=== PATIENT | male | born 1950 | race Caucasian/White ===

== ENCOUNTER 2017-12-26 17:46 | Inpatient (IN) | payer OTHER, MEDICAID ==
[~2017-12-26] VITALS: Ht 162.6 cm; Wt 55.8 kg
[2017-12-26 17:48] VITALS: BP 101/60
--- NOTE | 2017-12-26 18:01 | NUR ---
PT AMBULATED TO BED 4 WITH WALKER
--- NOTE | 2017-12-26 18:10 | NUR ---
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 PER CG PT REPORTS EPIGASTRIC PAIN FOR PAST 3-4 DAYS. PT HX SEIZURES, PROSTATE ENLARGEMENT, ECZEMA, CRANIOTOMY, MILD MENTAL RETARDATION, ACUTE SUB HEMATOMA, VAGUS NERVE STIMULATOR IMPLANT, HYPONATREMIA. PT NEURO WITHIN BASELINE FOR PT DX OF MENTAL RETARDATION. IS A & O X 4. GCS 15. ANSWERED QUESTIONS APPROPRIATELY GIVEN ADEQUATE TIME TO THINK. PT COOPERATIVE AND SMILING. PT REPORTS PAIN 4/10 IN EPIGASTRIC AREA THAT FEELS LIKE BURNING. WORSENS AFTER MEALS, ESPECIALLY DINNER AND WHEN HE LIES DOWN FLAT. PER CG, PT HAS NOT BEEN EATING LIKE HE USUALLY DOES X 3 DAYS. NO S/S OF ACUTE RESPIRATORY DISTRESS. CMS INTACT. SKIN INTACT. ER MD SWANNAW AWARE OF PT CONDITION. SAFETY PRECAUTIONS IN PLACE. PT NEEDS MET AT THIS TIME. WILL CONTINUE TO MONITOR.
--- NOTE | 2017-12-26 19:19 | NUR ---
Pt report given to SHYANNE Bryant RN AND MARY JANE BAILEY. Transfer of care at this time.
[2017-12-26] MEDS ORDERED: IBUPROFEN 800 MG TAB PO ONE (19:45)
--- NOTE | 2017-12-26 20:20 | NUR ---
PT TAKEN TO CT
--- NOTE | 2017-12-26 21:45 | NUR ---
PT RETUNED FROM CT PLACED ON MONITOR LUNG SOUNDS DIMINISHED ON THE RIGHT SIDE SOME CRACKLES HEARD. NO C/O OF PAIN AT THIS TIME PT SAID "MY LUNGS ARE FINE"
--- NOTE | 2017-12-26 22:10 | NUR ---
pt resting in bed, vss. instrumentation and controls technician continues at bedside.
[2017-12-26 22:59] LABS: APPEARANCE,URINE CLEAR (CLEAR); BILIRUBIN,URINE 1+ (NEGATIVE); BLOOD, URINE TRACE-L (NEGATIVE); COLOR,URINE YELLOW (YELLOW); LEUKOCYTE ESTERASE ,URINE NEGATIVE (NEGATIVE); NITRITE, URINE NEGATIVE (NEGATIVE); UGLUCOSE NEGATIVE (NEGATIVE)
[2017-12-26 23:08] LABS: RBC,URINE 0-5 (RARE) /HPF (0-5); WBC,URINE 0-5 (RARE) /HPF (0-5)
--- NOTE | 2017-12-26 23:18 | NUR ---
CAREGIVER AT BEDSIDE
--- NOTE | 2017-12-26 23:34 | NUR ---
CONSENT OBTAINED BY CHARGE NURSE FROM CAREGIVER FOR CHEST TUBE WITH CONSCIOUSS SEDATION.
[2017-12-26] MEDS ORDERED: NACL 0.9% 1,000 ML IV ONE (23:50)
[2017-12-26] MEDS ORDERED: LIDOCAINE 1% 500 MG/50 ML VIAL INJ SCH (23:50)
[2017-12-26] MEDS ORDERED: KETAMINE 500 MG/5 ML VIAL IVP ONE (23:50)
[2017-12-26] MEDS ORDERED: LIDOCAINE/EPI 1% 1:100000 20 ML VIAL INJ ONE (23:53)
[2017-12-27] VITALS (7 sets, daily range): BP systolic 101–175; BP diastolic 48–109
--- NOTE | 2017-12-27 00:23 | NUR ---
TIME OUT CALLED BY DR ANGULO FOR CHEST TUBE INSERTION WITH CONSCIOUSS SEDATION AND LOCAL ANESTHESIA. ER MD, RT, CHARGE NURSE AND PRIMARY CARE NURSE AT BEDSIDE.
[2017-12-27] MEDS ORDERED: LORazepam 2 MG/ML VIAL ONE (00:30)
--- NOTE | 2017-12-27 00:31 | NUR ---
PER DR ANGULO VERBAL ORDER ATIVAN 2MG ADMINISTERED IV PUSH FOR SEIZURE ACTIVITY.
--- NOTE | 2017-12-27 00:32 | NUR ---
PROCEDURE FOR POSSIBLE CHEST TUBE INSERTION WITH CONSCIOUSS SEDATION HAS BEGUN.
--- NOTE | 2017-12-27 00:33 | NUR ---
PER DR ANGULO CHEST TUBE IN, CHEST TUBE HOOKED UP TO VACCUM SYSTEM.
--- NOTE | 2017-12-27 00:35 | NUR ---
Note joi in EDM - 12/27/17 at 0253 by BYRON Patient will be admitted to care of DR HOGAN. Admited to ICU. Will go to room ICU. Belongings list completed. Report to MARY JANE MELGAR.
--- NOTE | 2017-12-27 00:37 | NUR ---
PROCEDURE DONE, WILL CONT TO MONITOR PT. VSS, NO S/S OF DISTRESS NOTED AT THIS MOMENT.
[2017-12-27] MEDS ORDERED: ONDANSETRON 4 MG/2 ML VIAL ONE (00:40)
--- NOTE | 2017-12-27 01:01 | NUR ---
APPROXIMATELY 0030 CALLED TO A CONCIOUS SEDATION TO PLACE A CHEST TUBE IN PT ON RT LUNG. PATIENT WAS HOOKED UP TO ENTITLED C02 MONITOR WITN NASAL CANNULA AT 2 TO 4 L. PT DID WELL DURING PROCEDURE NO SOB NOTED.
[2017-12-27] MEDS ORDERED: ONDANSETRON 4 MG/2 ML VIAL IVP ONE (01:10)
[2017-12-27] MEDS ORDERED: LORazepam 2 MG/ML VIAL IVP ONE ×2 (01:10→06:00)
[2017-12-27] MEDS ORDERED: HYDROcodone/APAP 7.5/325 MG 1 TAB PO PRN (01:15)
[2017-12-27] MEDS ORDERED: ACETAMINOPHEN 325 MG TAB PO PRN (01:15)
[2017-12-27] MEDS ORDERED: ONDANSETRON 4 MG/2 ML VIAL IM/IVP PRN (01:15)
[2017-12-27 01:35] LABS: BASOPHILS # (AUTO) 0.3 K/uL (0.00-0.22); BASOPHILS % (AUTO) 4.3 % (0.0-2.0); EOSINOPHILS # (AUTO) 0.4 K/uL (0-0.4); EOSINOPHILS % (AUTO) 6.3 % (0.0-4.0); HEMATOCRIT 37.8 % (36-52); HEMOGLOBIN 12.6 g/dL (12.0-18.0); LYMPHOCYTES # (AUTO) 1.1 K/uL (2.0-11.5); LYMPHOCYTES % (AUTO) 18.5 % (20.5-51.1); MEAN CORPUSCULAR HEMOGLOBIN 31 pg (27-31); MEAN CORPUSCULAR HGB CONC 33 g/dL (33-37); MEAN CORPUSCULAR VOLUME 94 fL (80-94); MONOCYTES # (AUTO) 0.4 K/uL (0.8-1.0); MONOCYTES % (AUTO) 7.1 % (1.7-9.3); NEUTROPHILS % (AUTO) 63.8 % (42.2-75.2); PLATELET COUNT (AUTO) 209 K/uL (140-450); RED BLOOD CELL COUNT(AUTO) 4.01 MIL/uL (4.20-6.10); RED CELL DISTRIBUTION WIDTH 12.6 % (11.6-13.7); WHITE BLOOD COUNT (AUTO) 6.2 K/uL (4.8-10.8)
--- NOTE | 2017-12-27 02:01 | NUR ---
100CC OF BLOOD IN VACCUM SYSTEM NOTED, ER MD MADE AWARE. NO S/S OF DISTRESS NOTED. VSS.
[2017-12-27] MEDS ORDERED: LIDOCAINE/EPI 1% 1:100000 20 ML VIAL INJ ONE (02:05)
[2017-12-27 02:16] LABS: ALBUMIN 3.1 g/dL (3.4-5.0); ANION GAP 13.1 (8-16); CARBON DIOXIDE 23.6 mmol/L (21-32); POTASSIUM 3.7 mmol/L (3.5-5.1); TOTAL BILIRUBIN 0.5 mg/dL (0.0-1.0)
[2017-12-27] MEDS ORDERED: LACO100T PO (02:20)
--- NOTE | 2017-12-27 02:30 | NUR ---
PATIENT ARRIVED VIA GURNEY FROM ER. RECEIVED BEDSIDE REPORT FROM LYNN RN AND CECE RN. PATIENT IS AWAKE, MUMBLING, AND DROWSY. UNABLE TO ORIENT PATIENT TO UNIT CARE ENVIRONMENT AT THIS TIME R/T PATIENT BEING DROWSY. DX PNEUMOTHORAX. PATIENT HAS CHEST TUBE ON LATERAL RIGHT SIDE DRAINING TO GRAVITY CONNECTED TO LOW INTERMITTENT SUCTIONING. THERE IS A #20 IN THE LEFT HAND THAT IS DRY, INTACT, AND PATENT. MRSA SWAB COLLECTED. ADMITTING VITAL SIGNS ARE TEMPERATURE 97.9, HR 82, BP 122/74, 100% ON 2LPM VIA NASAL CANNULA. INITIAL ASSESSMENT COMPLETED. HOB AT 30 DEGREES. WILL CONTINUE TO MONITOR PATIENT.
--- NOTE | 2017-12-27 02:35 | NUR ---
Patient will be admitted to care of DR HOGAN. Admited to ICU. Will go to room ICU. Belongings list completed. Report to MARY JANE MELGAR.
[2017-12-27 02:42] LABS: BARBITURATE, URINE NEG. ng/ml (NEG <=200); BENZODIAZEPINE, URINE NEG. ng/mL (NEG <=200); CANNABINOID, URINE NEG. ng/mL (NEG <=50); COCAINE, URINE NEG. ng/mL (NEG <=300); OPIATE, URINE NEG. ng/mL (NEG <=2000); PHENCYCLIDINE SCREEN,URINE NEG. ng/mL (NEG <=25)
[2017-12-27] MEDS: NACL 0.9% 1,000 ML IV SCH ×2 (02:49→12:48)
[2017-12-27 02:51] LABS: CHOL/HDL RATIO 2.1 (1-4.5); MAGNESIUM 1.7 mg/dL (1.8-2.4); PHOSPHORUS 3.2 mg/dL (2.5-4.9); THYROID STIMULATING HORMONE 1.94 uIU/mL (0.34-3.74)
[2017-12-27] MEDS ORDERED: LORazepam 2 MG/ML VIAL IVP SCH (03:00)
[2017-12-27 03:11] LABS: PROTHROMBIN TIME 12.4 secs (10.8-13.4)
[2017-12-27] MEDS ORDERED: LORazepam 2 MG/ML VIAL IM/IVP PRN ×2 (03:30→12:40)
[2017-12-27] MEDS ORDERED: MAG SULF 2000 MG/WATER PREMIX 50 ML IV SCH (04:00)
--- NOTE | 2017-12-27 04:05 | NUR ---
PATIENT SLEEPING IN BED. VITAL SIGNS WNL. HOB AT 30 DEGREES WITH BED IN LOWEST POSITION. CONTINUE TO MONITOR PATIENT.
--- NOTE | 2017-12-27 07:18 | NUR ---
SBAR GIVEN AT BEDSIDE TO LORE HINTON AND ONI HINTON FOR CONTINUITY OF CARE.
[2017-12-27 07:36] LABS: BASOPHILS # (AUTO) 0.3 K/uL (0.00-0.22); BASOPHILS % (AUTO) 3.3 % (0.0-2.0); EOSINOPHILS # (AUTO) 0.3 K/uL (0-0.4); EOSINOPHILS % (AUTO) 4.2 % (0.0-4.0); HEMOGLOBIN 12.9 g/dL (12.0-18.0); LYMPHOCYTES # (AUTO) 0.7 K/uL (2.0-11.5); LYMPHOCYTES % (AUTO) 9.4 % (20.5-51.1); MEAN CORPUSCULAR HEMOGLOBIN 32 pg (27-31); MEAN CORPUSCULAR HGB CONC 34 g/dL (33-37); MEAN CORPUSCULAR VOLUME 94 fL (80-94); MONOCYTES # (AUTO) 0.9 K/uL (0.8-1.0); MONOCYTES % (AUTO) 10.7 % (1.7-9.3); NEUTROPHILS # (AUTO) 5.8 K/uL (1.8-7.7); NEUTROPHILS % (AUTO) 72.4 % (42.2-75.2); PLATELET COUNT (AUTO) 206 K/uL (140-450); RED BLOOD CELL COUNT(AUTO) 4.03 MIL/uL (4.20-6.10); RED CELL DISTRIBUTION WIDTH 12.7 % (11.6-13.7)
--- NOTE | 2017-12-27 07:41 | NUR ---
RECEIVED REPORT FROM MARY JANE MELGAR. PT SLEEPING IN BED. 2L O2 NASAL CANULA. PT HAS LEFT HAND PERIPHERAL IV, 20 MADAI, 90ML NS RUNNING. IV SITE IS DRY AND ASYMPTOMATIC. PT HAS CHEST TUBE ON RIGHT SIDE, 2 CHEST TUBE CLAMPS AT BEDSIDE. PT HAS DIMINISHED BREATH SOUNDS ON RIGHT SIDE AND CLEAR BREATH SOUNDS ON LEFT. 21S2 HEARD AND NORMAL SINUS ON MONITOR. ACTIVE BOWEL SOUNDS IN ALL 4 QUADRANTS. PT HAS A PACE MAKER ON LEFT SIDE. PT IS AFEBRILE. PT CALL LIGHT WITHIN REACH, BED IS LOWEST POSITION WITH BED RAILS ELEVATED AND BED LOCK AND BED ALARM ON. WILL CLOSELY MONITOR.
[2017-12-27 08:35] LABS: ANION GAP 13.3 (8-16); CARBON DIOXIDE 23.7 mmol/L (21-32); CREATININE 0.8 mg/dL (0.7-1.3)
[2017-12-27] MEDS ORDERED: BISACODYL 10 MG SUPP RC PRN (09:00)
--- NOTE | 2017-12-27 09:24 | NUR ---
PATIENT HAS BEEN SCREENED AND CATEGORIZED MODERATE NUTRITION RISK. PATIENT WILL BE SEEN WITHIN 3-5 DAYS OF ADMISSION. 12/29/17 - 12/31/[address]
[2017-12-27] MEDS: PANTOPRAZOLE 40 MG INJ VIAL IVP SCH (09:46)
--- NOTE | 2017-12-27 10:00 | NUR ---
PT SLEEPING IN BED. RESIDENTS HAVE COME TO SEE PT. HE IS ON TELE STATUS. BOTH HIS NURSE AND THE DIRECTOR FROM HIS CARE HOME STOPPED BY TO SEE PT.
[2017-12-27] MEDS: KETOROLAC 30 MG/ML VIAL IVP PRN ×2 (10:13→18:08)
--- NOTE | 2017-12-27 12:00 | NUR ---
PT RESTING IN BED AND NO LONGER SHOWS ANY SIGNS OF FACIAL GRIMACES IN RESPONSE TO PAIN. PTS CALL LIGHT IN PLACE, BED LOCK AND ALARM ON. BED IN LOWEST POSITION. WILL CLOSELY MONITOR.
[2017-12-27] MEDS ORDERED: levETIRAcetam 500 MG TAB PO SCH (12:44)
[2017-12-27] MEDS ORDERED: CLINICAL MONITORING MC PRN (13:00)
--- NOTE | 2017-12-27 13:00 | NUR ---
SEIZURE PRECAUTION INITIATED. RAIL PADS IN PLACE AND WILL CLOSELY MONITOR.
[2017-12-27] MEDS ORDERED: levETIRAcetam 500 MG in NACL 0.9% 100 ML IV SCH (13:06)
[2017-12-27] MEDS ORDERED: levETIRAcetam 100 MG/ML VIAL IV ONE (13:11)
[2017-12-27] MEDS: PIPER/TAZO 3.375GM/D5W PREMIX 50 ML IV SCH ×2 (13:38→20:32)
--- NOTE | 2017-12-27 14:57 | NUR ---
PT HAS BEEN SLEEPING ALL DAY. LUNG SOUNDS ON RIGHT ARE STILL DIMINISHED WITH LEFT CLEAR. THE CHEST TUBE DRESSING IS DRY, CLEAN AND INTACT. LEFT HAND IV DRESSING DRY AND INTACT WITH NS RUNNING 40ML/HR. SAFETY PRECAUTIONS IN PLACE AND REPOSITIONED 2QH. PT'S BED IS IN LOWEST POSITION, BED LOCK AND ALARM ON. CALL LIGHT WITHIN REACH.
[2017-12-27] MEDS ORDERED: ALBUTEROL SULFATE/IPRATROPIU 3 ML SOL IH PRN (16:00)
--- NOTE | 2017-12-27 17:00 | NUR ---
DR. GHOSH CAME TO SEE PT. AND REVIEWED CHART.
--- NOTE | 2017-12-27 19:16 | NUR ---
TRANSFERRED CARE TO MARY JANE SOUZA, FOR CONTINUATION OF CARE
--- NOTE | 2017-12-27 19:20 | NUR ---
assumed care of pt.initial assessment completed.pt mentally challenged.sr on monitor.with permanent pacemaker to lt chest. with 02nc at 2lpm.w/chest tube to rt lateral chest to low continuous suction.scanty output noted.w/peripheral iv to lt wrist g20 intact infusing ordered ivf.skin intact.no c/o pain made.repositioned.
--- NOTE | 2017-12-27 19:35 | NUR ---
PT IS RESTING COMFORTABLY. NO SOB OR DISTRESS NOTED. PT IS ON ROOM AIR SPO2 99%. NO HHN TX NEEDED. WILL CONTINUE TO MONITOR.
--- NOTE | 2017-12-27 19:45 | NUR ---
no sob noted; 02sat 98 to 100%.Rt removed nasal cannula.will continue to monitor pt.
[2017-12-27] MEDS: VIMPAT 100MG TAB PO SCH (20:31)
[2017-12-27] MEDS: levETIRAcetam 500 MG TAB PO SCH (20:31)
[2017-12-27] MEDS ORDERED: NON-FORMULARY ITEM (Lacosamide (Vimpat) 100 MG) PO SCH (21:00)
--- NOTE | 2017-12-27 21:00 | NUR ---
all due meds given;pt able to swallow without difficulty.
--- NOTE | 2017-12-27 23:03 | NUR ---
PT AWAKE; CONTINENT OF URINE AT THIS TIME. OFFERED DRINK, PT REFUSED.REPOSITIONED.CHEST TUBE INTACT.DENIES PAIN
[2017-12-28] VITALS: BP 98/59
--- NOTE | 2017-12-28 01:00 | NUR ---
PT ASLEEP;EASILY AROUSABLE.TOLERATING ROOM AIR.,NO SOB NOTED.DENIES PAIN WHEN ASKED.
[2017-12-28 04:00] VITALS: BP 98/60
--- NOTE | 2017-12-28 04:07 | NUR ---
pt asleep;no in any distress.no s/sx of pain noted.repositioned
[2017-12-28] MEDS: PIPER/TAZO 3.375GM/D5W PREMIX 50 ML IV SCH ×3 (05:02→21:58)
--- NOTE | 2017-12-28 06:25 | NUR ---
pt awake; sr on monitor.still on room air.tolerating,no sob noted.peripheral iv to lt hand/wrist intact g20 infusing ordered ivf.chest tube to rt lateral chest intact.pt able to void freely.denies pain.
--- NOTE | 2017-12-28 06:27 | NUR ---
pt will be transferred to room 122 B. vital signs stable hr 69 bp 103/58 resp 16 and 02sat 98% on room air.
[2017-12-28 06:29] LABS: T4 (THYROXINE) 6.5 ug/dL (4.5-12.0)
--- NOTE | 2017-12-28 06:45 | NUR ---
pt transferred to telemetry jhony #[id number] in stable condition.alert.chest tube connected to low continuous suction.no sob noted.on room air.denies pain.report given to zach Perkins and charge nurse Macy abarca
[2017-12-28 06:48] LABS: BASOPHILS # (AUTO) 0.2 K/uL (0.00-0.22); BASOPHILS % (AUTO) 3.1 % (0.0-2.0); EOSINOPHILS # (AUTO) 0.5 K/uL (0-0.4); EOSINOPHILS % (AUTO) 10.2 % (0.0-4.0); HEMATOCRIT 37.4 % (36-52); HEMOGLOBIN 12.6 g/dL (12.0-18.0); LYMPHOCYTES # (AUTO) 0.5 K/uL (2.0-11.5); LYMPHOCYTES % (AUTO) 9.7 % (20.5-51.1); MEAN CORPUSCULAR HEMOGLOBIN 32 pg (27-31); MEAN CORPUSCULAR HGB CONC 34 g/dL (33-37); MEAN CORPUSCULAR VOLUME 94.6 fL (80-94); MONOCYTES # (AUTO) 0.6 K/uL (0.8-1.0); MONOCYTES % (AUTO) 12.4 % (1.7-9.3); NEUTROPHILS # (AUTO) 3.4 K/uL (1.8-7.7); NEUTROPHILS % (AUTO) 64.6 % (42.2-75.2); PLATELET COUNT (AUTO) 224 K/uL (140-450); RED BLOOD CELL COUNT(AUTO) 3.96 MIL/uL (4.20-6.10); RED CELL DISTRIBUTION WIDTH 12.6 % (11.6-13.7); WHITE BLOOD COUNT (AUTO) 5.2 K/uL (4.8-10.8)
[2017-12-28 07:24] LABS: ANION GAP 12.9 (8-16); CARBON DIOXIDE 22.7 mmol/L (21-32); CREATININE 0.8 mg/dL (0.7-1.3); POTASSIUM 3.6 mmol/L (3.5-5.1)
[2017-12-28 07:26] LABS: MAGNESIUM 1.9 mg/dL (1.8-2.4); PHOSPHORUS 2.8 mg/dL (2.5-4.9)
--- NOTE | 2017-12-28 07:30 | NUR ---
RECEIVED PT FROM APPRAISER AUDITOR RN, PT MENTALLY CHALLENGED, MONITOR SHOWS SR. ON O2 NC 2L/MIN, NO S/S OF RESPIRATORY DISTRESS NOTED. PT HAS PERMANENT PACEMAKER TO LEFT CHEST. CHEST TUBE TO RIGHT LATERAL CHEST CONNECTED TO SUCTION. IV SITE INTACT AND PATENT. PT ABLE TO MOVE ALL HIS EXTREMITIES, WILL CONTINUE TO MONITOR.
[2017-12-28 08:00] VITALS: BP 111/56
[2017-12-28] MEDS: SODIUM CHLORIDE 1 GM TAB PO SCH (09:00)
--- NOTE | 2017-12-28 09:00 | NUR ---
OFFERED PT BREAKFAST TRAY, PT DRINK ORANGE JUICE AND COFFEE ONLY.
[2017-12-28] MEDS: PANTOPRAZOLE 40 MG INJ VIAL IVP SCH (09:04)
[2017-12-28] MEDS: levETIRAcetam 500 MG TAB PO SCH ×2 (09:05→21:58)
[2017-12-28] MEDS: LACTOBACILLUS RHAMNOSUS GG 1 EACH CAP PO SCH (09:05)
[2017-12-28] MEDS: FINASTERIDE 5 MG TAB PO SCH (09:06)
[2017-12-28] MEDS: VIMPAT 100MG TAB PO SCH ×2 (10:14→21:57)
[2017-12-28 12:00] VITALS: BP 110/56
[2017-12-28] MEDS: NACL 0.9% 1,000 ML IV SCH (12:58)
--- NOTE | 2017-12-28 13:32 | NUR ---
KEYMODULE ASSEMBLY SUPERVISOR note (bedside swallow evaluation) [id number]. Bedside swallow evaluation completed, please see report for details. KEYMODULE ASSEMBLY SUPERVISOR provided pt with education regarding purpose of evaluation and rationale for recommendations. Pt verbalized understanding and agreement with recommendations at this time. Recommend: 1) soft chopped textures 2) nectar-thick liquids 3) aspiration precautions (including pt must be fully awake/alert/upright for any PO intakes, alternate small/slow bites and sips, stop giving PO if pt becomes less alert/SOB/coughing) 4) tray set-up assistance 5) no further KEYMODULE ASSEMBLY SUPERVISOR intervention indicated at this time. Physician to reorder if further concerns arise, as appropriate. G-codes: [id number] [facility] NOMS level 4. PVE for d/w RN (Eboni) prior to and following bedside swallow evaluation completion. KEYMODULE ASSEMBLY SUPERVISOR posted safe swallow strategies above pt's HOB.
--- NOTE | 2017-12-28 13:38 | NUR ---
DR. GHOSH IN TO SEE PT, UPDATED PT'S CONDITION, DR. GHOSH UNHOOKED CHEST TUBE SUCTION , NOTIFIED DR. GHOSH, SUCTION OUTPUT FROM 0700 TO NOW IS [address] GHOSH, ORDER CHEST X-RAY TMR AT 0800.
--- NOTE | 2017-12-28 15:43 | NUR ---
PT RESTING IN BED QUIETLY, NO S/S OF RESPIRATORY DISTRESS NOTED. ASKED PT ANY PAIN, PT DENIES PAIN .
[2017-12-28 16:00] VITALS: BP 116/64
[2017-12-28] MEDS: CHLORHEXADINE GLUC 2% CLOTH TP SCH (18:58)
[2017-12-28] MEDS: MUPIROCIN 2% OINT 22 GM TUBE TP SCH (18:58)
--- NOTE | 2017-12-28 19:00 | NUR ---
RECEIVED PT FROM SHO RN PT IS AAOX3 ON BED REST ON TELEMETRY SR , IV ON LEFT ARM INFUSING WELL, ON RT CHEST CHEST TUKBE CLAMP NOT DISTRESS NOTED AT THIS TIME REPOSITIONED INITAL ASSESSMENT DONE
[2017-12-28 20:00] VITALS: BP 109/55
--- NOTE | 2017-12-28 22:00 | NUR ---
REMAIN STABLE NOT SOB NOTED ON TELE SR REPOSITIONED Q2H 02 SAT ((5 LINEN CHANGED
[2017-12-29] VITALS (7 sets, daily range): BP systolic 107–134; BP diastolic 61–79
--- NOTE | 2017-12-29 01:00 | NUR ---
PT SLEEPING WELL NOT SIGNS OF PAIN NOTED IV O;N LEFT HAND INFUSING WELL ONTELMETRYK SR
--- NOTE | 2017-12-29 03:00 | NUR ---
REPOSITIONED Q2H DENIES ANY PAIN RT CHEST SIDE DRESSING DRY AND INTAC CHEST TUBE CLAMP NOT SOB NOTED 02 SAT 100%
[2017-12-29] MEDS: PIPER/TAZO 3.375GM/D5W PREMIX 50 ML IV SCH ×3 (05:17→20:49)
--- NOTE | 2017-12-29 06:01 | NUR ---
SPONGE BATH GIVEN LINEN CHANGED NOT DISTRESS NOTED REPOSITIONED Q2H, ON TELEMETRY SR RT CHEST DRESSING DRY AND INTACT CHEST TUBE CLAMP
--- NOTE | 2017-12-29 07:20 | NUR ---
RECEIVED REPORT FROM THE LANDSCAPE FOREMAN NURSE AT BEDSIDE FOR CONTINUITY OF CARE. PT IS AWAKE. IV ON L HAND 20G NS AT 40ML/HR INFUSING. CHEST TUBE IS CLAMPED. HAD CHEST XRAY THIS MORNING. STILL PENDING. WILL BE BACK TO ASSESS PT.
[2017-12-29 07:22] LABS: ANION GAP 12.6 (8-16); CARBON DIOXIDE 25.9 mmol/L (21-32); CREATININE 0.9 mg/dL (0.7-1.3); POTASSIUM 3.5 mmol/L (3.5-5.1)
[2017-12-29 07:23] LABS: BASOPHILS # (AUTO) 0.1 K/uL (0.00-0.22); BASOPHILS % (AUTO) 1.9 % (0.0-2.0); EOSINOPHILS # (AUTO) 0.4 K/uL (0-0.4); EOSINOPHILS % (AUTO) 7.5 % (0.0-4.0); HEMATOCRIT 37.6 % (36-52); HEMOGLOBIN 12.6 g/dL (12.0-18.0); LYMPHOCYTES # (AUTO) 0.8 K/uL (2.0-11.5); LYMPHOCYTES % (AUTO) 14.2 % (20.5-51.1); MEAN CORPUSCULAR HEMOGLOBIN 32 pg (27-31); MEAN CORPUSCULAR HGB CONC 34 g/dL (33-37); MEAN CORPUSCULAR VOLUME 93.8 fL (80-94); MONOCYTES # (AUTO) 0.6 K/uL (0.8-1.0); MONOCYTES % (AUTO) 10.6 % (1.7-9.3); NEUTROPHILS # (AUTO) 4.1 K/uL (1.8-7.7); NEUTROPHILS % (AUTO) 65.8 % (42.2-75.2); PLATELET COUNT (AUTO) 227 K/uL (140-450); RED CELL DISTRIBUTION WIDTH 12.7 % (11.6-13.7)
[2017-12-29 07:29] LABS: MAGNESIUM 1.8 mg/dL (1.8-2.4); PHOSPHORUS 2.9 mg/dL (2.5-4.9)
[2017-12-29] MEDS: LACTOBACILLUS RHAMNOSUS GG 1 EACH CAP PO SCH (08:41)
[2017-12-29] MEDS: levETIRAcetam 500 MG TAB PO SCH ×2 (08:41→20:48)
[2017-12-29] MEDS: PANTOPRAZOLE 40 MG INJ VIAL IVP SCH (08:42)
[2017-12-29] MEDS: DOCUSATE SODIUM 100 MG GELCAP PO PRN (08:42)
[2017-12-29] MEDS: FINASTERIDE 5 MG TAB PO SCH (08:42)
[2017-12-29] MEDS: SODIUM CHLORIDE 1 GM TAB PO SCH (08:43)
[2017-12-29] MEDS: VIMPAT 100MG TAB PO SCH ×2 (08:45→20:48)
--- NOTE | 2017-12-29 08:51 | NUR ---
ADMINISTERED MORNING SCHEDULED MEDS. PT TOLERATED WELL. PT ATE BREAKFAST AND ASKED FOR ANOTHER CUP OF COFFEE. NO SIGNS OF DISTRESS. WILL CONTINUE TO MONITOR PT.
--- NOTE | 2017-12-29 10:02 | NUR ---
NEEDED ASSISTANCE USING THE URINAL. ASSISTED. EMPTIED 300ML CLEAR YELLOW URINE. WILL CONTINUE TO MONITOR PT.
--- NOTE | 2017-12-29 11:14 | NUR ---
DAIN CORMIER. PT IN SEMI HONEYCUTT'S. NO SIGNS OF DISTRESS. PER MD, THEY WILL TALK TO PULMO AND SEE IF WE CAN REMOVE THE CHEST TUBE. WILL CONTINUE TO MONITOR PT.
[2017-12-29] MEDS: NACL 0.9% 1,000 ML IV SCH ×2 (12:22→22:16)
--- NOTE | 2017-12-29 12:58 | NUR ---
ADMINISTERED ZOSYN. PT TOLERATING WELL. SITTING UP EATING LUNCH. NO SIGNS OF DISTRESS. WILL CONTINUE TO MONITOR PT.
--- NOTE | 2017-12-29 14:22 | NUR ---
PT ATE SOME LUNCH. RESTING NOW. REQUESTED ANOTHER CUP OF COFFEE. NO SIGNS OF DISTRESS. WILL CONTINUE TO MONITOR PT.
--- NOTE | 2017-12-29 15:04 | NUR ---
PT SLEEPING SOUNDLY. NO SIGNS OF DISTRESS. WILL CONTINUE TO MONITOR PT.
--- NOTE | 2017-12-29 16:00 | NUR ---
PT NEEDED TO USE THE URINAL. ASSISTED PT. EMPTIED 400ML OF URINE. TURNED ON THE TV FOR PT. PT NOW WATCHING TV. NO SIGNS OF DISTRESS. WILL CONTINUE TO MONITOR PT.
[2017-12-29] MEDS: MUPIROCIN 2% OINT 22 GM TUBE TP SCH (18:20)
[2017-12-29] MEDS: CHLORHEXADINE GLUC 2% CLOTH TP SCH (18:20)
[2017-12-29] MEDS: MORPHINE SULFATE 4 MG/ML SYR IVP PRN (18:54)
--- NOTE | 2017-12-29 19:00 | NUR ---
IV INFILTRATED. STARTED A NEW IV ON L FA 22G. NS INFUSING. PT TOLERATED WELL. D/C'D OLD IV.
--- NOTE | 2017-12-29 19:25 | NUR ---
ENDORSED PT TO THE PROPERTY VALUER NURSE AT BEDSIDE FOR CONTINUITY OF CARE. IN STABLE CONDITION
--- NOTE | 2017-12-29 19:26 | NUR ---
RECEIVED BEDSIDE REPORT FROM DAY SHIFT NURSE ELIZABETH RN, PT STABLE, NO DISTRESS NOTED, IV TO L FA 22 G RUNNING NS @ 40ML/HR, PATENT, INTACT, INFUSING WELL, CHEST TUBE ATTACHED TO PT, CLAMPED, INITIAL ASSESSMENT DONE, ALL SAFETY PRECAUTION MET, WILL CONTINUE TO MONITOR.
--- NOTE | 2017-12-29 20:49 | NUR ---
DUE MEDICATION GIVEN, PT TOLERATED WELL, NO DISTRESS NOTED, CALL LIGHT WITHIN REACH, WILL CONTINUE TO MONITOR.
--- NOTE | 2017-12-29 23:51 | NUR ---
CHECKED ON PT, PT SLEEPING, NO DISTRESS NOTED, CALL LIGHT WITHIN REACH, WILL CONTINUE TO MONITOR.
[2017-12-30] VITALS: BP 144/67
--- NOTE | 2017-12-30 03:51 | NUR ---
CHECKED ON PT, ASSIST PT USING URINAL, COLLECTED 350ML URINE, YELLOW, CLEAR, NORMAL ODOR, NO DISTRESS NOTED, CALL LIGHT WITHIN REACH, WILL CONTINUE TO MONITOR
[2017-12-30 04:00] VITALS: BP 140/83
[2017-12-30] MEDS: PIPER/TAZO 3.375GM/D5W PREMIX 50 ML IV SCH ×2 (04:31→13:33)
--- NOTE | 2017-12-30 07:25 | NUR ---
ENDORSED PLAN OF CARE TO DAY SHIFT NURSE ELIZABETH HINTON, FOR CONTINUOUS OF CARE, PT STABLE, NO DISTRESS NOTED, CALL LIGHT WITHIN REACH.
--- NOTE | 2017-12-30 07:27 | NUR ---
RECEIVED REPORT FROM PHILOSOPHY LECTURER NURSE. PATIENT CURRENTLY SLEEPING WITH NO S/SX OF RESPIRATORY DISTRESS ON ROOM AIR. IV IN L FOREARM 22G INFUSING NS AT 40ML/HR. IV SITE IS CLEAN, DRY, AND INTACT. CHEST TUBE IS CLAMPED AND DRESSING IN PLACE. THE DRESSING IS CLEAN AND DRY. SEIZURE PRECAUTIONS AND FALL RISK PRECAUTIONS ARE IN PLACE. CONTACT PRECAUTIONS FOR MRSA IS IN PLACE. BED IN LOW POSITION. URINAL AT BEDSIDE. CALL LIGHT WITHIN REACH, WILL CONTINUE TO MONITOR.
[2017-12-30 07:31] LABS: ANION GAP 13.8 (8-16); CARBON DIOXIDE 24.2 mmol/L (21-32); CREATININE 0.9 mg/dL (0.7-1.3)
[2017-12-30 07:37] LABS: MAGNESIUM 1.8 mg/dL (1.8-2.4)
[2017-12-30 08:00] VITALS: BP 138/75
[2017-12-30 08:02] LABS: BASOPHILS # (AUTO) 0.1 K/uL (0.00-0.22); BASOPHILS % (AUTO) 1.7 % (0.0-2.0); EOSINOPHILS # (AUTO) 0.3 K/uL (0-0.4); EOSINOPHILS % (AUTO) 4.7 % (0.0-4.0); HEMATOCRIT 40.1 % (36-52); HEMOGLOBIN 13.6 g/dL (12.0-18.0); LYMPHOCYTES # (AUTO) 0.7 K/uL (2.0-11.5); LYMPHOCYTES % (AUTO) 10.5 % (20.5-51.1); MEAN CORPUSCULAR HEMOGLOBIN 32 pg (27-31); MEAN CORPUSCULAR HGB CONC 34 g/dL (33-37); MEAN CORPUSCULAR VOLUME 93.6 fL (80-94); MONOCYTES # (AUTO) 0.7 K/uL (0.8-1.0); MONOCYTES % (AUTO) 10.5 % (1.7-9.3); NEUTROPHILS # (AUTO) 4.6 K/uL (1.8-7.7); NEUTROPHILS % (AUTO) 72.6 % (42.2-75.2); PLATELET COUNT (AUTO) 262 K/uL (140-450); RED BLOOD CELL COUNT(AUTO) 4.29 MIL/uL (4.20-6.10); RED CELL DISTRIBUTION WIDTH 12.5 % (11.6-13.7); WHITE BLOOD COUNT (AUTO) 6.4 K/uL (4.8-10.8)
[2017-12-30] MEDS: levETIRAcetam 500 MG TAB PO SCH ×2 (09:09→21:11)
[2017-12-30] MEDS: FINASTERIDE 5 MG TAB PO SCH (09:09)
[2017-12-30] MEDS: PANTOPRAZOLE 40 MG INJ VIAL IVP SCH (09:10)
[2017-12-30] MEDS: LACTOBACILLUS RHAMNOSUS GG 1 EACH CAP PO SCH (09:10)
[2017-12-30] MEDS: SODIUM CHLORIDE 1 GM TAB PO SCH (09:11)
[2017-12-30] MEDS: MORPHINE SULFATE 4 MG/ML SYR IVP PRN ×3 (09:12→17:12)
--- NOTE | 2017-12-30 09:15 | NUR ---
ADMINISTERED MORNING MEDS, INCLUDING PAIN MEDS. PATIENT TOLERATED MEDS. IV IS CLEAN, DRY, AND INTACT. WILL CONTINUE TO MONITOR.
[2017-12-30] MEDS: VIMPAT 100MG TAB PO SCH ×2 (09:16→21:12)
[2017-12-30 12:00] VITALS: BP 125/70
--- NOTE | 2017-12-30 12:01 | NUR ---
TURNED PATIENT W ROOM SERVICE FOOD SERVICE ATTENDANT. ROOM SERVICE FOOD SERVICE ATTENDANT EMPTIED 350 ML OF CLEAR YELLOW URINE. PATIENT TOLERATED WELL. WILL CONTINUE TO MONITOR PATIENT.
[2017-12-30] MEDS: NACL 0.9% 1,000 ML IV SCH ×2 (12:22→23:50)
--- NOTE | 2017-12-30 15:10 | NUR ---
PT WATCHING TV. NO SIGNS OF DISTRESS. WILL CONTINUE TO MONITOR PT.
[2017-12-30 16:00] VITALS: BP 140/73
--- NOTE | 2017-12-30 17:00 | NUR ---
ORDERED CHEST TUBE TO BE REMOVED PER DR. GHOSH. DR MIRZA REMOVED IT. XEROFORM APPLIED AND ISLAND DRESSING ON TOP. PT TOLERATED WELL. WILL CONTINUE TO MONITOR. WILL ADMINISTER PAIN MEDS. PT C/O PAIN.
[2017-12-30] MEDS: MUPIROCIN 2% OINT 22 GM TUBE TP SCH (17:13)
[2017-12-30] MEDS: CHLORHEXADINE GLUC 2% CLOTH TP SCH (17:13)
--- NOTE | 2017-12-30 17:35 | NUR ---
SPOKE TO DR AGUILERA RE PT'S LACK OF APPETITE. INTAKE VERY LITTLE. REQUESTED ENSURE TID. WILL CONTINUE TO MONITOR PT.
--- NOTE | 2017-12-30 19:11 | NUR ---
ENDORSED PT TO THE OVERHEAD DOOR TECHNICIAN NURSE AT BEDSIDE FOR CONTINUITY OF CARE. PT IS IN STABLE CONDITION.
--- NOTE | 2017-12-30 19:12 | NUR ---
RECEIVED BEDSIDE REPORT FROM DAY SHIFT NURSE ELIZABETH RN, PT STABLE, NO DISTRESS NOTED, IV TO L FA 22G RUNNING NS @ 40ML/HR. PT ON ROOM AIR NO SOB, INITIAL ASSESSMENT DONE, ALL SAFETY PRECAUTION MET, WILL CONTINUE TO MONITOR.
[2017-12-30 20:00] VITALS: BP 126/71
--- NOTE | 2017-12-30 20:15 | NUR ---
PT CAREGIVER CAME TO MEET PT, CAREGIVER AT BEDSIDE TALKING TO PT, PT STABLE, NO DISTRESS NOTED, CALL LIGHT WITHIN REACH, WILL CONTINUE TO MONITOR.
[2017-12-30] MEDS: PIPERACILLIN/TAZOBACTAM 3.375 GM in DEXTROSE 5% 50 ML IV SCH (21:11)
--- NOTE | 2017-12-30 21:12 | NUR ---
DUE MEDICATION ADMINISTERED, PT TOLERATED WELL, NO DISTRESS NOTED, CALL LIGHT WITHIN REACH, WILL CONTINUE TO MONITOR.
--- NOTE | 2017-12-30 23:52 | NUR ---
CHECKED ON PT, PT SLEEPING, NO DISTRESS NOTED, CALL LIGHT WITHIN REACH, WILL CONTINUE TO MONITOR.
[2017-12-31] VITALS: BP 121/72
--- NOTE | 2017-12-31 02:21 | NUR ---
PT SLEEPING, NO DISTRESS NOTED, CALL LIGHT WITHIN REACH, WILL CONTINUE TO MONITOR.
[2017-12-31 04:00] VITALS: BP 107/62
[2017-12-31] MEDS: PIPERACILLIN/TAZOBACTAM 3.375 GM in DEXTROSE 5% 50 ML IV SCH (04:41)
--- NOTE | 2017-12-31 04:41 | NUR ---
DUE MEDICATION GIVEN PT TOLERATED WELL, NO DISTRESS NOTED, CALL LIGHT WITHIN REACH, WILL CONTINUE TO MONITOR.
--- NOTE | 2017-12-31 07:14 | NUR ---
ENDORSED PLAN OF CARE TO DAY SHIFT NURSE JULIO C RN, PT STABLE, NO DISTRESS NOTED, CALL LIGHT WITHIN REACH, WILL CONTINUE TO MONITOR.
[2017-12-31 07:29] LABS: BASOPHILS # (AUTO) 0.2 K/uL (0.00-0.22); BASOPHILS % (AUTO) 2.7 % (0.0-2.0); EOSINOPHILS # (AUTO) 0.4 K/uL (0-0.4); EOSINOPHILS % (AUTO) 6.2 % (0.0-4.0); HEMATOCRIT 40.5 % (36-52); HEMOGLOBIN 13.6 g/dL (12.0-18.0); LYMPHOCYTES % (AUTO) 13.9 % (20.5-51.1); MEAN CORPUSCULAR HEMOGLOBIN 31 pg (27-31); MEAN CORPUSCULAR HGB CONC 34 g/dL (33-37); MEAN CORPUSCULAR VOLUME 93.7 fL (80-94); MONOCYTES # (AUTO) 0.7 K/uL (0.8-1.0); MONOCYTES % (AUTO) 9.8 % (1.7-9.3); NEUTROPHILS # (AUTO) 4.7 K/uL (1.8-7.7); NEUTROPHILS % (AUTO) 67.4 % (42.2-75.2); PLATELET COUNT (AUTO) 289 K/uL (140-450); RED BLOOD CELL COUNT(AUTO) 4.33 MIL/uL (4.20-6.10); RED CELL DISTRIBUTION WIDTH 12.7 % (11.6-13.7)
--- NOTE | 2017-12-31 07:30 | NUR ---
RECEIVED REPORT FROM ROADS SUPERINTENDENT NURSE. PT IS AAOX3, NAME, PLACE AND SITUATION. NO S/S OF RESPIRATORY DISTRESS ON ROOM AIR. IV NOTED ON L FOREARM 22G, INFUSING IVF WELL. IV SITE IS CLEAN, DRY, AND INTACT. CHEST TUBE WAS REMOVED YESTERDAY, DRESSING IN PLACE INTACT, CLEAN AND DRY. SEIZURE PRECAUTIONS AND FALL RISK PRECAUTIONS ARE IN PLACE. CONTACT PRECAUTIONS FOR MRSA IS IN PLACE. BED IN LOW POSITION. CALL LIGHT WITHIN REACH, WILL CONTINUE TO MONITOR.
[2017-12-31 08:00] VITALS: BP 108/67
--- NOTE | 2017-12-31 08:30 | NUR ---
PT IS EATING BREAKFAST, ON HIGH HONEYCUTT POSITION, NO S/S OF ACUTE DISTRESS. MEDS GIVEN WITH THICKEN LIQ.
[2017-12-31] MEDS: FINASTERIDE 5 MG TAB PO SCH (08:42)
[2017-12-31] MEDS: LACTOBACILLUS RHAMNOSUS GG 1 EACH CAP PO SCH (08:43)
[2017-12-31] MEDS: PANTOPRAZOLE 40 MG INJ VIAL IVP SCH (08:43)
[2017-12-31] MEDS: levETIRAcetam 500 MG TAB PO SCH ×2 (08:43→20:56)
[2017-12-31] MEDS: SODIUM CHLORIDE 1 GM TAB PO SCH (09:00)
[2017-12-31] MEDS: VIMPAT 100MG TAB PO SCH ×2 (09:40→20:59)
--- NOTE | 2017-12-31 11:09 | NUR ---
PT IV SITE LOOK RED, IV IS INFILTRATED. IV CATH DC'ED, TIP INTACT, PRESSURE APPLIED. Addendum: 12/31/17 at 1832 by Ean Wheeler RN PLEASE DISCARD, WRONG PT.
[2017-12-31 12:00] VITALS: BP 103/62
--- NOTE | 2017-12-31 12:00 | NUR ---
PT FINISHED ENSURE, PT EATING 60% OF HIS PLATE. NO S/S OF DISTRESS.
[2017-12-31] MEDS: PIPER/TAZO 3.375GM/D5W PREMIX 50 ML IV SCH ×2 (13:41→20:55)
--- NOTE | 2017-12-31 13:42 | NUR ---
12/31/2017 RD INITIAL ASSESSMENT COMPLETED PLEASE REFER TO NUTRITION ASSESSMENT UNDER CARE ACTIVITY FOR ESTIMATED NUTRITIONAL NEEDS. CONTINUE S0FT DIET WITH NECTAR THICK LIQUID + BOOST PLUS TID MEDICALLY NECESSARY. ENCOURAGE INCREASED PO INTAKE TOLERATED. RD TO FOLLOW-UP IN 2-3 DAYS PATIENT IS HIGH RISK. NIKKI KEENE, RD
--- NOTE | 2017-12-31 14:30 | NUR ---
ACCORDING TO LAURA DOUGLAS, PT HAD SEIZURE FOR 5-6 SECOND. CHECKED PT. NO BODY INJURY NOTED. PT IS RESTING IN BED. BREATHING EVEN AND UNLABORED. ASKED PT IF HE KNOWS WHAT HAPPENED. HE IS UNSURE. NOTIFIED DR AGUILERA ABOUT THE SEIZURE EPISODE. HAS SEEN THE PT.
[2017-12-31] MEDS ORDERED: HYDRAGUARD CREAM TP ONE (15:10)
--- NOTE | 2017-12-31 15:30 | NUR ---
IV ACCESS ESTABLISHED ON RIGHT INDEX FINGER, 24 G. Addendum: 12/31/17 at 1833 by Ean Wheeler RN PLEASE DISCARD, WRONG PT.
[2017-12-31] MEDS ORDERED: HYDRAGUARD CREAM TP PRN (15:45)
[2017-12-31 16:00] VITALS: BP 96/54
[2017-12-31] MEDS: MUPIROCIN 2% OINT 22 GM TUBE TP SCH (16:54)
[2017-12-31] MEDS: HYDRAGUARD CREAM TP SCH ×2 (16:55→21:04)
[2017-12-31] MEDS: CHLORHEXADINE GLUC 2% CLOTH TP SCH (16:56)
--- NOTE | 2017-12-31 17:40 | NUR ---
PHYSICAL THERAPY CO-SIGN The Physical Therapy Progress Notes documented by Experimental Mechanic Spacecraft have been reviewed. Reviewed/Co-Signed by: Greta Allen DPT Documentation Done by: Harvey Garibay PTA Patient moises tx well, progressing towards goals, cont with PT POC as moises/safe. Addendum: 12/31/17 at 1741 by Greta Allen PT Amended: Links added.
--- NOTE | 2017-12-31 18:00 | NUR ---
SALT TAB NON-ADMINISTERED DUE PENDING CHEM LABS
--- NOTE | 2017-12-31 18:10 | NUR ---
PT HAD DINNER, ENSURE FINISHED. ATE 35% OF THE PLATE
[2017-12-31] MEDS: DOCUSATE SODIUM 100 MG GELCAP PO PRN (19:10)
[2017-12-31] MEDS: NACL 0.9% 1,000 ML IV SCH (19:12)
--- NOTE | 2017-12-31 19:32 | NUR ---
ENDORSED PT TO THE SALES PROFESSIONAL NURSE. PT IN STABLE CONDITION
--- NOTE | 2017-12-31 19:34 | NUR ---
RECEIVED PT FROM JULIO C HINTON PT IS AAOX3 MENTALLY CHALLENGED AT ROOM AIR ON [id number] SR IV ON LEFT FA INFUSING WELL RT CHEST DRESSING DRY AN INTACT NOT SOB NOTED 02 SAT 96% INITIAL ASSESSMENT DONE
[2017-12-31 20:00] VITALS: BP 124/64
--- NOTE | 2017-12-31 22:00 | NUR ---
PT REPOSITIONED VOIDING WELL ON TELEMETRY SR BREATHIG WELL NOT SOB NOTED AT ROOM AIR
[2018-01-01] VITALS: BP 115/54
--- NOTE | 2018-01-01 02:02 | NUR ---
PT SLEEPING WELL BREATHING WELLL REPOSITIONED ONTELMETRY SR
[2018-01-01 04:00] VITALS: BP 100/51
--- NOTE | 2018-01-01 04:00 | NUR ---
SPONGE BATH GIVEN LINEN CHANGED ON TELEMETRY SR, REPOSITIONED NOT DISTRESS NOTED
[2018-01-01] MEDS: HYDRAGUARD CREAM TP SCH ×3 (05:13→21:00)
[2018-01-01] MEDS: PIPER/TAZO 3.375GM/D5W PREMIX 50 ML IV SCH (05:15)
--- NOTE | 2018-01-01 06:30 | NUR ---
PT DENIES ANY PAIN OR DISCOMFORT AT ROOM AIR REMAIN STABLE
[2018-01-01 06:48] LABS: HEMATOCRIT 36.3 % (36-52); HEMOGLOBIN 12.2 g/dL (12.0-18.0); MEAN CORPUSCULAR HEMOGLOBIN 32 pg (27-31); MEAN CORPUSCULAR HGB CONC 34 g/dL (33-37); MEAN CORPUSCULAR VOLUME 93.3 fL (80-94); PLATELET COUNT (AUTO) 267 K/uL (140-450); RED BLOOD CELL COUNT(AUTO) 3.89 MIL/uL (4.20-6.10); RED CELL DISTRIBUTION WIDTH 12.6 % (11.6-13.7); WHITE BLOOD COUNT (AUTO) 15.5 K/uL (4.8-10.8)
--- NOTE | 2018-01-01 07:30 | NUR ---
RECEIVED REPORT FROM CAP MAKER NURSE. PT IS AAOX3, NAME, PLACE AND SITUATION. NO S/S OF RESPIRATORY DISTRESS ON ROOM AIR. IV NOTED ON L FOREARM 22G, INFUSING IVF WELL. IV SITE IS CLEAN, DRY, AND INTACT. DRESSING ON RIGHT CHEST, INTACT, CLEAN AND DRY. SEIZURE PRECAUTIONS AND FALL RISK PRECAUTIONS ARE IN PLACE. CONTACT PRECAUTIONS FOR MRSA IS IN PLACE. BED IN LOW POSITION. CALL LIGHT WITHIN REACH, WILL CONTINUE TO MONITOR.
[2018-01-01 08:00] VITALS: BP 108/57
--- NOTE | 2018-01-01 08:00 | NUR ---
VITALS TAKEN, NO S/S OF ACUTE DISTRESS NOTED ON ROOM AIR.
[2018-01-01] MEDS: FINASTERIDE 5 MG TAB PO SCH (08:38)
[2018-01-01] MEDS: levETIRAcetam 500 MG TAB PO SCH ×2 (08:38→21:38)
[2018-01-01] MEDS: LACTOBACILLUS RHAMNOSUS GG 1 EACH CAP PO SCH (08:38)
[2018-01-01] MEDS: VIMPAT 100MG TAB PO SCH ×2 (08:38→09:00)
[2018-01-01] MEDS: PANTOPRAZOLE 40 MG INJ VIAL IVP SCH (08:39)
--- NOTE | 2018-01-01 08:40 | NUR ---
MEDS GIVEN WITH THICKEN WATER. PT TOLERATED WELL. NO SEIZURE LAST NIGHT ACCORDING VOLUNTEER SERVICES SUPERVISOR NURSEMARIAM. AND NO SEIZURE NOTED AT THIS TIME.
[2018-01-01 12:00] VITALS: BP 91/51
[2018-01-01] MEDS: PIPERACILLIN/TAZOBACTAM 3.375 GM in DEXTROSE 5% 50 ML IV SCH ×2 (12:18→21:38)
--- NOTE | 2018-01-01 12:21 | NUR ---
CM NOTE CONCURRENT REVIEW DONE FOR CONTINUED STAY CRITERIA
[2018-01-01 12:25] LABS: BASOPHILS # (AUTO) 0.2 K/uL (0.00-0.22); BASOPHILS % (AUTO) 1.4 % (0.0-2.0); EOSINOPHILS # (AUTO) 0.1 K/uL (0-0.4); HEMATOCRIT 35.1 % (36-52); HEMOGLOBIN 11.9 g/dL (12.0-18.0); LYMPHOCYTES # (AUTO) 0.8 K/uL (2.0-11.5); LYMPHOCYTES % (AUTO) 7.2 % (20.5-51.1); MEAN CORPUSCULAR HEMOGLOBIN 32 pg (27-31); MEAN CORPUSCULAR HGB CONC 34 g/dL (33-37); MEAN CORPUSCULAR VOLUME 93.6 fL (80-94); MONOCYTES # (AUTO) 0.6 K/uL (0.8-1.0); NEUTROPHILS # (AUTO) 9.3 K/uL (1.8-7.7); NEUTROPHILS % (AUTO) 85.4 % (42.2-75.2); PLATELET COUNT (AUTO) 247 K/uL (140-450); RED BLOOD CELL COUNT(AUTO) 3.75 MIL/uL (4.20-6.10); RED CELL DISTRIBUTION WIDTH 12.8 % (11.6-13.7)
[2018-01-01 12:27] LABS: LYMPHOCYTES % (MANUAL) 13 % (20-46); MONOCYTES % (MANUAL) 2 % (5-12)
--- NOTE | 2018-01-01 12:30 | NUR ---
FOR BREAKFAST, PT FINISHED BOOST AND ATE 50% OF THE PLATE. PT REFUSED LUNCH AND STATED HE IS NOT HUNGARY, HOWEVER, PT FINISHED THE BOOST.
[2018-01-01 15:28] LABS: ANION GAP 12.6 (8-16); POTASSIUM 4.6 mmol/L (3.5-5.1); TOTAL BILIRUBIN 0.6 mg/dL (0.0-1.0)
[2018-01-01 15:29] LABS: ALBUMIN 2.9 g/dL (3.4-5.0); PHOSPHORUS 3.3 mg/dL (2.5-4.9)
[2018-01-01 16:00] VITALS: BP 96/52
--- NOTE | 2018-01-01 16:30 | NUR ---
PT HAD VISITORS. PT CHATTING WITH HIS FRIENDS FROM BOARD AND CARE. NO S/S OF ACUTE DISTRESS. ENCOURAGED PT TO EAT MORE.
[2018-01-01] MEDS: CHLORHEXADINE GLUC 2% CLOTH TP SCH (17:40)
[2018-01-01] MEDS: MUPIROCIN 2% OINT 22 GM TUBE TP SCH (17:40)
--- NOTE | 2018-01-01 18:30 | NUR ---
HELPED PT TO BATHROOM WITH X RAY CONTROL EQUIPMENT REPAIRER WITH WALKER. PT HAD A BM. X RAY CONTROL EQUIPMENT REPAIRER CHANGED THE BED LINENS.
--- NOTE | 2018-01-01 19:10 | NUR ---
RECONNECTED PT BACK TO IVF.
--- NOTE | 2018-01-01 19:30 | NUR ---
RECEIVED PATIENT LYING BED. BED IN LOW POSITION, CALL LIGHT WITHIN REACH, BED ALARM ON. WILL CONTINUE TO MONITOR.
--- NOTE | 2018-01-01 19:30 | NUR ---
ENDORSED PT TO RESIDENT ASSISTANT CNA RN. PT IN STABLE CONDITION.
[2018-01-01 20:00] VITALS: BP 116/53
--- NOTE | 2018-01-01 21:10 | NUR ---
SEEN PATIENT LYING ASLEEP ON BED. FALL PRECAUTION IMPLEMENTED . NO S/S OF ACUTE DISTRESS NOTED AT THIS TIME.
[2018-01-01] MEDS: NACL 0.9% 1,000 ML IV SCH (21:50)
[2018-01-01 23:40] LABS: ALBUMIN 2.7 g/dL (3.4-5.0); ANION GAP 16.3 (8-16); CARBON DIOXIDE 21.2 mmol/L (21-32); CREATININE 0.9 mg/dL (0.7-1.3); POTASSIUM 3.5 mmol/L (3.5-5.1); TOTAL BILIRUBIN 0.7 mg/dL (0.0-1.0)
[2018-01-02] VITALS: BP 119/53
--- NOTE | 2018-01-02 01:25 | NUR ---
SEEN PATIENT ASLEEP IN BED. FALL PRECAUTION IMPLEMENTED. WILL CONTINUE TO MONITOR.
--- NOTE | 2018-01-02 03:12 | NUR ---
SEEN PATIENT ASLEEP. FALL PRECAUTION IMPLEMENTED. WILL CONTINUE TO MONITOR.
[2018-01-02 04:00] VITALS: BP 101/50
[2018-01-02] MEDS: PIPERACILLIN/TAZOBACTAM 3.375 GM in DEXTROSE 5% 50 ML IV SCH ×2 (05:38→13:07)
[2018-01-02] MEDS: HYDRAGUARD CREAM TP SCH ×2 (05:40→13:07)
--- NOTE | 2018-01-02 07:20 | NUR ---
ENDORSED PATIENT TO AM SHIFT NURSE. PATIENT IN STABLE CONDITION.
--- NOTE | 2018-01-02 07:25 | NUR ---
RECEIVED PATIENT REPORT AT BEDSIDE. PATIENT AWAKE AO X1 NAME. NO S/S OF DISTRESS. PATIENT ON RA. NO SOB AT THIS TIME. NO COMPLAINTS OF PAIN AT THIS TIME. NO SOB. NO PAIN AT THIS TIME. IV NOTED RAC 20G 40ML/HR NS. BED LOWERED WITH CALL LIGHT WITHIN REACH. WILL CONTINUE TO MONITOR
--- NOTE | 2018-01-02 07:57 | NUR ---
PATIENT AWAKE AND ALERT. PRN TX ADMINISTERED FOR LEFT SIDED WHEEZES. TOLERATED TX WELL. CLEAR BREATH SOUNDS POST TX. NO RESPIRATORY DISTRESS NOTED AT THIS TIME.
[2018-01-02 08:00] VITALS: BP 111/66
[2018-01-02] MEDS: levETIRAcetam 500 MG TAB PO SCH (09:52)
[2018-01-02] MEDS: LACTOBACILLUS RHAMNOSUS GG 1 EACH CAP PO SCH (09:52)
[2018-01-02] MEDS: FINASTERIDE 5 MG TAB PO SCH (09:52)
[2018-01-02] MEDS: PANTOPRAZOLE 40 MG INJ VIAL IVP SCH (09:53)
--- NOTE | 2018-01-02 10:00 | NUR ---
GAVE PT ALL MORNING MEDS. PT WAS ABLE TO TAKE PILLS ONE BY ONE WITH THICKENED LIQUIDS. WILL CONTINUE TO MONITOR.
--- NOTE | 2018-01-02 10:00 | NUR ---
I call [facility] Patient's current board an [facility] I spoke to Bairon/Facility staff to inform him that Patient will be discharge today from [facility] and that facility needs to coordinate discharge and roller picker time. Per Taiwo he is aware and will be contacting Arabella (agency development manager) to set up discharge and roller picker time for Patient. According to Taiwo he is unable to tell us time and that only the social media strategist Arabella coordinates, set up staff and that she will be the one calling back with that information and time for roller picker. I thank him and inform him that Im expecting her call then ended the call
[2018-01-02] MEDS: VIMPAT 100MG TAB PO SCH (11:18)
[2018-01-02 12:00] VITALS: BP 126/60
--- NOTE | 2018-01-02 12:01 | NUR ---
I WAS DOING ROUNDS CHECKING PATIENT VITALS, PHYSICAL THERAPY WAS IN THE ROOM TO START PHYSICAL THERAPY. PATIENT HAD A SEIZURE LASTING 25 SEC. AFTER SE[address] I [address] O2 PULSE OX AND HE WAS SAT AT 99%, NO NEED FOR OXYGEN, PATIENT WAS CONFUSED FOR 10 SEC. ADVISE PATIENT TO RELAX AND STAY IN BED. PATIENT LISTEN TO COMMANDS. AFTER PATIENT APPEARED NORMAL NO SIGNS AND SYMPTOMS OF DISTRESS. WILL LET THE RESIDENCE KNOW. AND WILL CONTINUE TO MONITOR.
[2018-01-02] MEDS ORDERED: PIPERACILLIN/TAZOBACTAM 3.375 GM VIAL IV ONE (13:02)
[2018-01-02] MEDS ORDERED: LAM200 PO (13:16)
[2018-01-02] MEDS ORDERED: KEP500 PO (13:16)
[2018-01-02] MEDS ORDERED: FINA5TAB5 PO (13:16)
--- NOTE | 2018-01-02 14:37 | NUR ---
I receive a call back from MARY JANE Warren from Patient's Board and Care . Stating that she is working with [facility] psychiatrist) to coordinate Patient's discharge and microfiche duplicator time today. MARY JANE Warren wanted to know if Patient's was receiving and continue to need IV antibiotics after discharge. I asked Briana to hold to get information for her; then I asked Patrol Mother for information and returned to call with Briana to inform her that Patient no longer needs IV medications. Briana thank me for information and stated that board and care staff will be able to microfiche duplicator patient for discharge at about 15:00-15:15. I thank her back and ended the call.
--- NOTE | 2018-01-02 15:10 | NUR ---
PT DC WENT HOME WITH [facility]. PT GIVEN HOME MEDS. AND PRESCRIPTION. PT IV LINE REMOVED. ID TAGS REMOVED. WAS TAKEN TO FRONT OF HOSPITAL VIA WHEEL CHAIR. PT GIVEN ALL DC INFORMATION, AND EXPLAINED TO FOLLOW UP WITH PCP AND UROLOGIST, AND NEUROLOGIST. PT TOOK ALL THEIR BELONGINGS. NO S/S OF DISTRESS. PT LEFT IN STABLE CONDITION.
[2018-01-02 15:32] LABS: LAMOTRIGINE 5.2 ug/mL (2.0-20.0)
== END 2018-01-02 15:10 | DRG 177 ==
LOC: MED 17:46 → MIC 12-27 01:26 → MTU 12-28 06:45
PROVIDERS: ADMIT Student in an Organized Health Care Education/Training Program; ATTEND Student in an Organized Health Care Education/Training Program
PROC: 0W9930Z Drainage of Right Pleural Cavity with Drainage Device, Percutaneous Approach (ICD-10-PCS; principal; 2017-12-26)
DX: J69.0 Pneumonitis due to inhalation of food and vomit (principal); E43 Unspecified severe protein-calorie malnutrition; J96.01 Acute respiratory failure with hypoxia; J93.9 Pneumothorax, unspecified; S27.301A Unspecified injury of lung, unilateral, initial encounter; F79 Unspecified intellectual disabilities; G40.909 Epilepsy, unspecified, not intractable, without status epilepticus; N40.0 Benign prostatic hyperplasia without lower urinary tract symptoms; K59.00 Constipation, unspecified; R45.1 Restlessness and agitation; I10 Essential (primary) hypertension; N21.0 Calculus in bladder; X58.XXXA Exposure to other specified factors, initial encounter; Y93.89 Activity, other specified; Y92.89 Other specified places as the place of occurrence of the external cause; Z68.21 Body mass index [BMI] 21.0-21.9, adult; Y99.8 Other external cause status
CPT/HCPCS: 32551; 36415; 71045; 71250; 80048; 80053; 80173; 80305; 81001; 83036; 83735; 84100; 84436; 84443; 84479; 85025; 85610; 85730; 87040; 87081; 87086; 92610; 93005; 94640; 96361; 96374; 96375; 97110; 97116; 97140; 97530; 97799; 99285; C9113; J1885; J1953; J2001; J2060; J2270; J2405; J2543; J3475; J7030; J7060; J7620; Q0092

== ENCOUNTER 2018-04-09 10:08 | Emergency (ER) | payer OTHER, MEDICAID ==
[~2018-04-09] VITALS: Ht 170.2 cm; Wt 58.5 kg
[~2018-04-09 10:08] MED LIST: FINA5TAB5 PO; KEP500 PO; LACO100T PO; LAM200 PO
--- NOTE | 2018-04-09 10:14 | NUR ---
PATIENT WHEELCHAIR ASSISTED TO BED 4.
[2018-04-09 10:15] VITALS: BP 107/65
--- NOTE | 2018-04-09 10:15 | NUR ---
67m bib caregiver, Gill HINTON from [facility], for generalized weakness x 1 day. Caregiver denies any fevers, n/v/d, or changes in po intake. Patient is at neuro baseline per caregiver. Caregiver also reports of right eye swelling. GCS=14. Answers questions apprioriate at times. Patient denies any pain. RR are even and unlabored. Nad. Patient changed into gown and placed to cardiac, bp, and pulse ox monitoring. Seizure precautions in place. All needs met at this time. Will continue to monitor.
--- NOTE | 2018-04-09 10:27 | NUR ---
Patient being evaluated by physician at bedside.
[2018-04-09] MEDS ORDERED: NACL 0.9% 1,000 ML IV ONE (10:30)
--- NOTE | 2018-04-09 10:52 | NUR ---
ivf started and infusing without difficultly. lab drawn and sent to lab. awaiting lab results. caregiver explained plan of care and verbalized understanding. all questions and concerns answered at this time. all needs met. will continue to monitor.
[2018-04-09 10:53] LABS: BASOPHILS # (AUTO) 0.1 K/uL (0.00-0.22); EOSINOPHILS # (AUTO) 0.1 K/uL (0-0.4); EOSINOPHILS % (AUTO) 1.5 % (0.0-4.0); HEMATOCRIT 35.1 % (36-52); HEMOGLOBIN 12.2 g/dL (12.0-18.0); LYMPHOCYTES # (AUTO) 0.8 K/uL (2.0-11.5); LYMPHOCYTES % (AUTO) 15.7 % (20.5-51.1); MEAN CORPUSCULAR HEMOGLOBIN 31 pg (27-31); MEAN CORPUSCULAR HGB CONC 35 g/dL (33-37); MEAN CORPUSCULAR VOLUME 88.9 fL (80-94); MONOCYTES # (AUTO) 0.7 K/uL (0.8-1.0); MONOCYTES % (AUTO) 13.2 % (1.7-9.3); NEUTROPHILS # (AUTO) 3.5 K/uL (1.8-7.7); NEUTROPHILS % (AUTO) 67.6 % (42.2-75.2); PLATELET COUNT (AUTO) 256 K/uL (140-450); RED BLOOD CELL COUNT(AUTO) 3.94 MIL/uL (4.20-6.10); RED CELL DISTRIBUTION WIDTH 12.7 % (11.6-13.7); WHITE BLOOD COUNT (AUTO) 5.2 K/uL (4.8-10.8)
[2018-04-09 11:08] LABS: ANION GAP 13.2 (8-16); CREATININE 0.9 mg/dL (0.7-1.3); POTASSIUM 4.2 mmol/L (3.5-5.1); TOTAL BILIRUBIN 0.6 mg/dL (0.0-1.0)
[2018-04-09 11:29] LABS: PROTHROMBIN TIME 13.7 secs (10.8-13.4)
--- NOTE | 2018-04-09 12:11 | NUR ---
Patient discharged with v/s stable. Written and verbal after care instructions given and explained to Caregiver. Caregiver verbalized understanding. Wheel Chair Assistedby caregiver. All questions addressed prior to discharge. Advised to follow up with PMD.
[2018-04-09 12:12] VITALS: BP 106/64
== END 2018-04-09 12:11 | disposition home or self-care (01) ==
LOC: MED 10:08
DX: R53.1 Weakness (principal); H57.8 Other specified disorders of eye and adnexa; Z95.0 Presence of cardiac pacemaker
CPT/HCPCS: 36415; 80053; 85025; 85610; 85730; 99284

== ENCOUNTER 2018-06-06 15:14 | Emergency (ER) | payer OTHER, MEDICAID ==
[~2018-06-06] VITALS: Ht 170.2 cm; Wt 57.2 kg
[2018-06-06 15:30] VITALS: BP 106/63
--- NOTE | 2018-06-06 15:30 | NUR ---
PT TRIAGED AND PLACED IN ED BED 12, REPORT TO ELAINA HINTON
--- NOTE | 2018-06-06 15:47 | NUR ---
67/M BIB CPG FROM [facility] IN ECCLES WITH C/O SMALL AMOUNT OF SLIGHTLY PINK DRAINAGE FROM R PARIETAL SHUNT AREA X TODAY. HX: HTN, PROSTATE ENLARGEMENT, MR, R SIDED CRANIOTOMY,SEIZURE DISORDER; LAST SEIZURE A FEW WEEK AGO. MEDS: DUTASTERIDE, DOCUSATE, KEPPRA, LAMICTAL, ZONASMIDIDE . DENIES N/V/D. AMB WITH WALKER; LUNGS CLEAR BL; HR EVEN AND REGULAR; PT DENIES ANY FEVER, CP, SOB, OR COUGH AT THIS TIME; PATIENT STATES PAIN OF 0/10 AT THIS TIME; VSS; PATIENT POSITIONED FOR COMFORT; HOB ELEVATED; BEDRAILS UP X2; BED DOWN. ER MD MADE AWARE OF PT STATUS.
--- NOTE | 2018-06-06 15:57 | NUR ---
Lonnie tamez in [facility] - 06/06/18 at 1609 by [email or web address] PT TAKEN TO CT VIA W/C ACCOMPANIED BY FRUIT BUYER.
--- NOTE | 2018-06-06 15:57 | NUR ---
PT TAKEN TO CT VIA [facility], ACCOMPANIED BY FOREIGN EXCHANGE SERVICES MANAGER.
--- NOTE | 2018-06-06 16:08 | NUR ---
PT RETURNED FROM CT VIA [facility], ACCOMPANIED BY FIELD HUMAN RESOURCES MANAGER.
[2018-06-06 18:35] LABS: BASOPHILS % (AUTO) 0.3 % (0.0-2.0); EOSINOPHILS # (AUTO) 0.1 K/uL (0-0.4); EOSINOPHILS % (AUTO) 2.9 % (0.0-4.0); HEMATOCRIT 36.2 % (36-52); HEMOGLOBIN 12.2 g/dL (12.0-18.0); LYMPHOCYTES # (AUTO) 1.1 K/uL (2.0-11.5); LYMPHOCYTES % (AUTO) 22.6 % (20.5-51.1); MEAN CORPUSCULAR HEMOGLOBIN 32 pg (27-31); MEAN CORPUSCULAR HGB CONC 34 g/dL (33-37); MEAN CORPUSCULAR VOLUME 93.5 fL (80-94); MONOCYTES # (AUTO) 0.5 K/uL (0.8-1.0); MONOCYTES % (AUTO) 10.6 % (1.7-9.3); NEUTROPHILS # (AUTO) 3.1 K/uL (1.8-7.7); NEUTROPHILS % (AUTO) 63.6 % (42.2-75.2); PLATELET COUNT (AUTO) 205 K/uL (140-450); RED BLOOD CELL COUNT(AUTO) 3.87 MIL/uL (4.20-6.10); RED CELL DISTRIBUTION WIDTH 15.8 % (11.6-13.7); WHITE BLOOD COUNT (AUTO) 4.8 K/uL (4.8-10.8)
[2018-06-06 18:51] LABS: ANION GAP 8.8 (8-16); CARBON DIOXIDE 26.9 mmol/L (21-32); CREATININE 0.7 mg/dL (0.7-1.3); POTASSIUM 3.7 mmol/L (3.5-5.1)
[2018-06-06 18:56] LABS: ALBUMIN 3.4 g/dL (3.4-5.0); TOTAL BILIRUBIN 0.4 mg/dL (0.0-1.0)
[2018-06-06 18:59] LABS: PROTHROMBIN TIME 11.3 secs (10.8-13.4)
--- NOTE | 2018-06-06 19:13 | NUR ---
Pt report given to MONTSERRAT HINTON. Transfer of care at this time.
--- NOTE | 2018-06-06 19:30 | NUR ---
RECEIVED REPORT FROM AM NURSE. PT RESTING IN BED, VSS, DENIES ANY PAIN. ALL NEEDS MET AT THIS TIME.
[2018-06-06] MEDS ORDERED: NACL 0.9% 1,000 ML IV ONE (21:00)
--- NOTE | 2018-06-06 21:49 | NUR ---
PT TAKEN TO CT
--- NOTE | 2018-06-06 22:04 | NUR ---
PT BACK FROM CT.
--- NOTE | 2018-06-06 22:13 | NUR ---
PT RESTING IN BED, VSS, PT DENIES ANY PAIN AT THIS TIME. ALL NEEDS MET.
--- NOTE | 2018-06-06 23:00 | NUR ---
CALLED PT'S CAREGIVER BABAR [phone] NOTIFIED THAT PT IS BEING PLANNED TO BE DISCHARGED SOON, ETA 15 MINS.
--- NOTE | 2018-06-06 23:57 | NUR ---
ER MD AT BEDSIDE TO SPEAK WITH PT'S CAREGIVER BABAR. PT AND PT'S CAREGIVER AGREED TO HAVE TRANSFER ARRANGEMENTS AT THIS TIME. [employer] MADE AWARE.
[2018-06-07] MEDS ORDERED: VANCOMYCIN 1GM/DEXT 5% PREMIX 200 ML IV ONE (00:10)
[2018-06-07] MEDS ORDERED: VANCOMYCIN PER PHARMACY MC PRN (00:10)
[2018-06-07] MEDS ORDERED: cefTRIAXone 1,000 MG VIAL ONE (00:26)
[2018-06-07] MEDS ORDERED: VANCOMYCIN 1,000 MG VIAL ONE (01:01)
--- NOTE | 2018-06-07 01:34 | NUR ---
CALLED PT'S CAREGIVER BABAR [phone], NOTIFIED THAT PT WAS NOT ACCEPTED BY NEUROSURGEON, NOTIFIED THAT PT WILL BE DISCHARGED IN 1 HOUR. WAS TOLD THAT HE WILL BE CALLING SOMEONE TO [employer]BINATION WELDER PT, AND WILL CALL BACK.
--- NOTE | 2018-06-07 02:36 | NUR ---
CALLED PT'S CAREGIVER BABAR, WAS TOLD THAT PT HAS BEEN ARRANGED TRANSPORT THAT IS COMING AT [phone], RAMON . PT SLEEPING COMFORTABLY, AROUSABLE TO NAME, VSS, ALL NEEDS MET AT THIS TIME.
--- NOTE | 2018-06-07 04:12 | NUR ---
PT SLEEPING COMFORTABLY, AROUSABLE TO NAME, VSS, RR EVEN AND UNLABORED. PT DENIES ANY PAIN AT THIS TIME. AWAITING PT'S TRANSPORT, ER MD AWARE. ALL NEEDS MET AT THIS TIME.
--- NOTE | 2018-06-07 05:00 | NUR ---
CALLED PT'S CAREGIVER AKILA , ASKED WHEN SHE IS COMING TO PICK PT, ETA 15 MINS. Addendum: 06/07/18 at 0533 by CARISSA CAREGIVER RAMON
[2018-06-07 05:25] VITALS: BP 146/84
--- NOTE | 2018-06-07 05:25 | NUR ---
Patient discharged with v/s stable. Written and verbal after care instructions given and explained. Patient alert, oriented and verbalized understanding of instructions. Ambulatory with steady gait. All questions addressed prior to discharge. ID band removed. Patient advised to follow up with PMD. Rx of KEFLEX given. Patient educated on indication of medication including possible reaction and side effects. Opportunity to ask questions provided and answered. Pt and pt's caregiver instructed to follow up with neurosurgeon with printed results and CD tomorrow.
== END 2018-06-07 05:25 | disposition home or self-care (01) ==
LOC: MED 15:14
DX: R51 Headache (principal); R56.9 Unspecified convulsions; Z95.0 Presence of cardiac pacemaker; Z79.899 Other long term (current) drug therapy
CPT/HCPCS: 36415; 70450; 70460; 71045; 80053; 83880; 84484; 85025; 85610; 85730; 93005; 96365; 96366; 96367; 99285; J0696; J3370; J7030; Q9967

== ENCOUNTER 2019-02-15 13:26 | Emergency (ER) | payer OTHER, MEDICAID ==
[~2019-02-15] VITALS: Ht 162.6 cm; Wt 52.2 kg
[2019-02-15 13:33] VITALS: BP 110/61
--- NOTE | 2019-02-15 13:35 | NUR ---
ermd at bedside
--- NOTE | 2019-02-15 13:35 | NUR ---
c/o urinary frequency & foul odor x 2days. denies pain, fever, n/v. bed in low position, caregiver at bedside
--- NOTE | 2019-02-15 13:38 | NUR ---
PATIENT AMBULATED TO BED 2
[2019-02-15] MEDS ORDERED: LEVOFLOXACIN 500 MG TAB PO ONE (13:55)
[2019-02-15 14:12] VITALS: BP 110/61
--- NOTE | 2019-02-15 14:13 | NUR ---
Patient discharged with v/s stable. Written and verbal after care instructions given and explained. Patient verbalized understanding. Ambulatory with steady gait. All questions addressed prior to discharge. Advised to follow up with PMD. prescription of doxycycline given.
[2019-02-15 14:23] LABS: APPEARANCE,URINE CLOUDY (CLEAR); BILIRUBIN,URINE NEGATIVE (NEGATIVE); BLOOD, URINE 3+ (NEGATIVE); COLOR,URINE YELLOW (YELLOW); LEUKOCYTE ESTERASE ,URINE 3+ (NEGATIVE); NITRITE, URINE NEGATIVE (NEGATIVE); UGLUCOSE NEGATIVE (NEGATIVE)
[2019-02-15 14:31] LABS: RBC,URINE 20-50 /HPF (0-5); WBC,URINE 80-100 /HPF (0-5)
== END 2019-02-15 14:13 | disposition home or self-care (01) ==
LOC: MED 13:26
DX: N39.0 Urinary tract infection, site not specified (principal); Z79.899 Other long term (current) drug therapy
CPT/HCPCS: 81001; 87086; 87186; 99283

== ENCOUNTER 2020-11-25 16:06 | Emergency (ER) | payer OTHER, MEDICAID ==
[~2020-11-25] VITALS: Ht 165.1 cm; Wt 66.2 kg
[2020-11-25 16:43] VITALS: BP 95/62
--- NOTE | 2020-11-25 17:50 | NUR ---
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 DENIES LOC. PT GOT COVID VACCINE 1ST DODE 2 WEEKS AGO. PT DENIES PAIN AT THIS TIME. DENIES N/V. PT IS LAYING IN BED WITH BED WITH EVEN AND UNLABORED RESPIRATIONS BED. IN LOWEST POSITION, BRAKES LOCKED, X1 SIDERAIL UP. PMH: MOD ID, ORGANIC BRAIN SYNDROME, HTN, BPH, SUB HEMATOMA S/P CRANIOPLASTY, CATARACT
--- NOTE | 2020-11-25 18:14 | NUR ---
PT MOVED TO BED 12.
[2020-11-25] MEDS ORDERED: LIDOCAINE MPF 1% 10 MG/ML VIAL INJ ONE (18:15)
[2020-11-25] MEDS ORDERED: BACITRACIN OINT 500 UNITS/GM PKT TP ONE (18:40)
--- NOTE | 2020-11-25 18:52 | NUR ---
APPLIED BACITRACIN TO LEFT UPPER EYE AND APPLIED NON-ADHERENT DRESSING TO LEFT UPPER EYE WITHOUT ANY ISSUES.
[2020-11-25 19:10] VITALS: BP 95/62
--- NOTE | 2020-11-25 19:13 | NUR ---
Patient discharged with v/s stable. Written and verbal after care instructions given and explained. Patient verbalized understanding. Ambulatory with by caregiver. All questions addressed prior to discharge. Advised to follow up with PMD.
== END 2020-11-25 19:13 | disposition home or self-care (01) ==
LOC: MED 16:06
DX: S01.112A Laceration without foreign body of left eyelid and periocular area, initial encounter (principal); Z95.0 Presence of cardiac pacemaker; Z79.899 Other long term (current) drug therapy; W18.39XA Other fall on same level, initial encounter; Y93.89 Activity, other specified; Y92.89 Other specified places as the place of occurrence of the external cause; Y99.8 Other external cause status
CPT/HCPCS: 12011; 99282; J2001

== ENCOUNTER 2021-11-04 15:59 | Emergency (ER) | payer OTHER, MEDICAID ==
[~2021-11-04] VITALS: Ht 154.9 cm; Wt 64.4 kg
[2021-11-04 16:11] VITALS: BP 105/65
--- NOTE | 2021-11-04 16:19 | NUR ---
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 DENIES LOC.
[2021-11-04 19:15] VITALS: BP 105/65
--- NOTE | 2021-11-04 19:15 | NUR ---
Patient discharged with v/s stable. Written and verbal after care instructions given and explained. Patient verbalized understanding. Ambulatory with WALKER. All questions addressed prior to discharge. Advised to follow up with PMD.
== END 2021-11-04 19:15 | disposition home or self-care (01) ==
LOC: MED 15:59
DX: S00.93XA Contusion of unspecified part of head, initial encounter (principal); I10 Essential (primary) hypertension; Z95.0 Presence of cardiac pacemaker; W19.XXXA Unspecified fall, initial encounter; Y93.89 Activity, other specified; Y92.89 Other specified places as the place of occurrence of the external cause; Y99.8 Other external cause status
CPT/HCPCS: 70450; 72125; 73130; 99285

== ENCOUNTER → 2022-09-13 | Outpatient (CLI) | payer OTHER, MEDICAID | END | disposition home or self-care (01) | LOC: MLB 12:00 | PROVIDERS: ATTEND Nurse Practitioner Family | DX: G40.89 Other seizures (principal); Z79.899 Other long term (current) drug therapy | CPT/HCPCS: 36415; 80173; 87086 ==

== ENCOUNTER 2024-03-28 14:03 | Emergency (ER) | payer OTHER, MEDICAID ==
[~2024-03-28] VITALS: Ht 172.7 cm; Wt 63.5 kg
[2024-03-28 14:09] VITALS: BP 110/57; PULSE 82; RESP 16; TEMP 98.8; O2SAT 97
[2024-03-28 15:32] LABS: BASOPHILS # (AUTO) 0.1 K/uL (0.00-0.22); BASOPHILS % (AUTO) 1.1 % (0.0-2.0); EOSINOPHILS # (AUTO) 0.1 K/uL (0-0.4); EOSINOPHILS % (AUTO) 0.7 % (0.0-4.0); HEMATOCRIT 37.8 % (36-52); LYMPHOCYTES # (AUTO) 0.9 K/uL (2.0-11.5); LYMPHOCYTES % (AUTO) 8.8 % (20.5-51.1); MEAN CORPUSCULAR HEMOGLOBIN 35 pg (27-31); MEAN CORPUSCULAR HGB CONC 35 g/dL (33-37); MEAN CORPUSCULAR VOLUME 100.5 fL (80-94); MONOCYTES # (AUTO) 0.4 K/uL (0.8-1.0); MONOCYTES % (AUTO) 3.4 % (1.7-9.3); NEUTROPHILS # (AUTO) 9.2 K/uL (1.8-7.7); PLATELET COUNT (AUTO) 244 K/uL (140-450); RED BLOOD CELL COUNT(AUTO) 3.76 MIL/uL (4.20-6.10); RED CELL DISTRIBUTION WIDTH 13.9 % (11.6-13.7); WHITE BLOOD COUNT (AUTO) 10.7 K/uL (4.8-10.8)
[2024-03-28 15:47] LABS: ANION GAP 11.8 (8-16); CALCIUM 8.7 mg/dL (8.5-10.1); CARBON DIOXIDE 24.9 mmol/L (21-32); CHLORIDE 104 mmol/L (98-107); CREATININE 0.9 mg/dL (0.6-1.3); GLUCOSE 89 mg/dL (74-106); POTASSIUM 3.7 mmol/L (3.5-5.1); SODIUM SERUM 137 mmol/L (136-145); UREA NITROGEN, BLOOD 18 mg/dL (7-18)
[2024-03-28] MEDS: NACL 0.9% 1,000 ML IV ONE (16:31)
[2024-03-28] MEDS ORDERED: LORazepam 1 MG TAB ONE (16:33)
[2024-03-28] MEDS: LORazepam 1 MG TAB PO ONE (16:34)
[2024-03-28] MEDS ORDERED: LEVE1000 PO (17:14)
[2024-03-28] MEDS: levETIRAcetam 1,000 MG in NACL 0.9% 100 ML IV ONE (17:37)
[2024-03-28 17:54] LABS: APPEARANCE,URINE CLEAR (CLEAR); BILIRUBIN,URINE NEGATIVE (NEGATIVE); BLOOD, URINE NEGATIVE (NEGATIVE); COLOR,URINE YELLOW (YELLOW); LEUKOCYTE ESTERASE ,URINE NEGATIVE (NEGATIVE); NITRITE, URINE NEGATIVE (NEGATIVE); PROTEIN,URINE NEGATIVE (NEGATIVE); UGLUCOSE NEGATIVE (NEGATIVE); UROBILINOGEN,URINE 0.2 EU/dL (0.2 - 1)
[2024-03-28 18:00] VITALS: BP 103/52; PULSE 73; RESP 19; TEMP 98.8; O2SAT 94
== END 2024-03-28 17:58 | disposition home or self-care (01) ==
LOC: MED 14:03
DX: G40.509 Epileptic seizures related to external causes, not intractable, without status epilepticus (principal); I10 Essential (primary) hypertension; Z95.0 Presence of cardiac pacemaker; Z79.899 Other long term (current) drug therapy; Z98.890 Other specified postprocedural states
CPT/HCPCS: 36415; 70450; 71045; 80048; 81003; 82948; 85025; 93005; 96361; 96365; 99285; J1953; J7030